=== PATIENT | male | born 1935 | race Caucasian/White ===

== ENCOUNTER 2017-03-23 05:39 | Day surgery (SDC) | payer MEDICARE, BC ==
[2017-03-12 12:44] VITALS: BMI 30.7
--- NOTE | 2017-03-13 05:15 | HP ---
DATE OF ADMISSION: 03/23/2017 HISTORY OF PRESENT ILLNESS: Mr. Ancelmo Ojeda is an 81-year-old male patient followed Dr. Jang wi th an umbilical hernia that is bothersome to him. He has gained weight recently. He has a diastasi s recti. Plan is to repair his hernia using mesh as it is bothersome. He understands the risks and benefits and consents. He consents to use of mesh. He understands risks of infection, bleeding, r eoperation, recurrence of hernia and consents. MEDICATIONS: Advil as needed, Aleve as needed, Tylenol as needed, folic acid daily, glucosamine 3 t ablets a day, multivitamins daily, Flomax 0.4 mg daily, finasteride 5 mg a day. PAST MEDICAL HISTORY: Rheumatoid arthritis, BPH, umbilical hernia. PAST SURGICAL HISTORY: Vasectomy in 1981, bilateral inguinal hernia repair in 2003, rotator cuff re pair in 2003, hemorrhoidectomy in 1987, colonoscopy in 2001, left shoulder squamous cell carcinoma e xcision that I performed in 2012, synovectomy left knee in 2007. ALLERGIES: None. SOCIAL HISTORY: Tobacco none. Alcohol none. REVIEW OF SYSTEMS: Ten-point noncontributory. PHYSICAL EXAMINATION: VITAL SIGNS: 234 pounds, 5 foot 10 inches, 136/72, 79, 97.3 degrees. HEAD, EARS, EYES, NOSE AND THROAT: Unremarkable. LUNGS: Clear to auscultation. CARDIAC: Regular rate and rhythm without murmur or gallop. ABDOMEN: Soft, obese. Umbilical hernia present, diastasis recti present. ASSESSMENT AND PLAN: 1. Umbilical hernia. Plan mesh repair. Risks of infection, bleeding, reoperation, recurrence of h ernia have discussed and questions answered. 2. Diastasis recti, no intervention necessary. 3. Hypertension. 4. Rheumatoid arthritis.
[2017-03-23] MEDS ORDERED: Ketorolac Tromethamine 30 MG/ML VIAL ONE (06:15)
[2017-03-23] MEDS ORDERED: Fentanyl 100 MCG/2 ML VIAL ONE (06:50)
[2017-03-23] MEDS ORDERED: Bupivacaine HCl 0.5%/Epinephrine 1:200,000/PF 30 ml Vial ONE (06:59)
[2017-03-23] MEDS ORDERED: Glycopyrrolate 0.2 MG/ML 5 ML SYRINGE ONE (07:37)
[2017-03-23] MEDS ORDERED: Dexamethasone 20 MG/5 ML VIAL ONE (07:37)
[2017-03-23] MEDS ORDERED: Lidocaine 1% PF 5 ML VIAL ONE (07:37)
[2017-03-23] MEDS ORDERED: Ondansetron HCl/PF 4 MG/2 ML Vial ONE (07:37)
[2017-03-23] MEDS ORDERED: Propofol 200 MG/20 ML VIAL ONE (07:37)
--- NOTE | 2017-03-23 09:23 | OP ---
DATE OF PROCEDURE: 03/23/2017 PREOPERATIVE DIAGNOSES: Umbilical hernia, symptomatic, diastasis recti no treatment. POSTOPERATIVE DIAGNOSIS: Umbilical hernia, symptomatic, diastasis recti no treatment. PROCEDURE: Umbilical hernia repair 6.4 cm PVP mesh. SURGEON: Dr. Emeterio Santacruz ANESTHESIA: General. Local 0.5% Marcaine with epinephrine, 30 mL, mixed with 2% Xylocaine, 10 mL. PROCEDURE IN DETAIL: The patient was taken to the operating room where under general anesthesia, ab domen was clipped of hair, prepared with chloraprep, draped in routine fashion. Local anesthetic in filtrated into skin and subcutaneous tissue about the operative site. Infraumbilical incision made and carried down through the skin and subcutaneous tissue to the fascial defect resecting the umbili william hernia and incarcerated omentum. The remainder of omentum dropped back into the abdominal cavit y. The underside prefascial area was dissected free digitally and a 6.4 cm PVP mesh placed in the a bdominal cavity opened and fascia approximated oskmo-cutt-awth type fashion with interrupted sutures of 0 PDS pop-offs incorporating mesh into the approximation. Once this was completed, subcutaneous tissues approximated with 3-0 Monocryl, skin with subdermal 4-0 Monocryl and DermaGlue applied. Th e patient tolerated the procedure well.
== END 2017-03-23 10:22 | disposition home or self-care (01) ==
LOC: SDC 05:39
PROVIDERS: ATTEND Specialist
PROC: 0WUF0JZ Supplement Abdominal Wall with Synthetic Substitute, Open Approach (ICD-10-PCS; principal; 2017-03-23)
DX: K42.0 Umbilical hernia with obstruction, without gangrene (principal); M62.08 Separation of muscle (nontraumatic), other site; M06.9 Rheumatoid arthritis, unspecified; I10 Essential (primary) hypertension; Z79.899 Other long term (current) drug therapy; Z98.52 Vasectomy status; Z98.42 Cataract extraction status, left eye; Z98.41 Cataract extraction status, right eye; Z96.1 Presence of intraocular lens; Z98.890 Other specified postprocedural states
CPT/HCPCS: J0131; J0670; J1100; J1885; J2001; J2405; J2704; J3010

== ENCOUNTER 2019-03-17 08:17 | Outpatient (CLI) | payer MEDICARE, BC ==
--- NOTE | 2019-03-17 13:38 | RAD ---
XR Chest Pa Lat STANDARD HISTORY: Preoperative evaluation COMPARISON: 04/07/2013 FINDINGS: The heart size is normal. The aorta is tortuous. Mild chronic changes again seen. The lungs are well expanded without focal areas of consolidation, pneumothorax or pleural effusions. There are postop changes of right rotator cuff repair. IMPRESSION: No radiographic evidence of acute cardiopulmonary process.
[2019-03-17 13:43] LABS: #Eosinphils 0.2 thou/uL (0.0-0.7); #Lymphocytes 2.2 thou/uL (1.20-3.40); #Monocytes 0.7 thou/uL (0.11-0.59); #Neutrophils 6.5 thou/uL (1.40-6.50); %Basophils 0.3 % (0.0-1.0); %Lymphocytes 22.7 % (21.0-51.0); %Monocytes 7.7 % (0.0-10.0); %Neutrophils 67.3 % (42.0-75.0); Hemoglobin 16.6 g/dL (14.0-18.0); Mean Corpuscular HGB CONC 35.2 g/dL (32.0-36.0); Mean Corpuscular Volume 90.7 fL (78.0-98.0); Mean Platelet Volume 7.3 fL (7.4-10.4); Platelet Count 198 thou/uL (130-400); RBC Distribution Width 12.5 % (11.5-14.5); White Blood Cell (WBC) Count 9.6 thou/uL (4.8-10.8)
[2019-03-17 13:48] LABS: Bacteria/HPF None Seen HPF (None Seen); Bilirubin Negative (Negative); Blood, Urine Negative (Negative); Clarity Clear (Clear); Glucose, Urine (Dipstick) Normal (Negative); Leukocyte Negative Leu/uL (Negative); Nitrite Negative (Negative); Protein, Urine (Dipstick) Negative (Neg-Trace); RBC/HPF 0-3 HPF (0-3); Squamous Epithelial None Seen HPF (0-3); Urobilinogen Normal mg/dL (Less than 2); WBC/HPF 0-3 HPF (0-3)
[2019-03-17 13:49] LABS: Prothrombin Time 13.2 SEC (12.0-14.7)
[2019-03-17 14:07] LABS: Anion Gap 10 mmol/L (10-20); BUN (Urea Nitrogen) 14 mg/dL (8.4-25.7); Calc. Creatinine Clearance 0 mL/min (70-130); Calcium 9.8 mg/dL (7.8-10.44); Carbon Dioxide 26 mmol/L (23-31); Chloride 104 mmol/L (98-107); Estimated GFR-MDRD 71; Glucose 89 mg/dL (83-110); Potassium 4.2 mmol/L (3.5-5.1); Sodium 136 mmol/L (136-145)
== END 2019-03-17 08:18 | disposition home or self-care (01) ==
LOC: LABBT 08:17
PROVIDERS: ATTEND Orthopaedic Surgery
DX: Z01.818 Encounter for other preprocedural examination (principal); M17.11 Unilateral primary osteoarthritis, right knee
CPT/HCPCS: 71046; 80048; 81001; 85025; 85610; 87081; 93005; 93010

== ENCOUNTER 2019-03-28 05:33 | Day surgery (SDC) | payer MEDICARE, BC ==
[2019-03-17 13:00] VITALS: BMI 31.7
[2019-03-28] MEDS ORDERED: Tranexamic Acid 1,000 MG/10 ML VIAL ONE ×2 (05:58→09:11)
[2019-03-28] MEDS ORDERED: Sodium Chloride 0.9% 100 ML ONE (05:58)
[2019-03-28] MEDS ORDERED: Vancomycin HCl 1.5 GM in Sodium Chloride 0.9% 250 ML 300 ML IVPB SCH ×2 (06:15→18:00)
[2019-03-28] MEDS ORDERED: Fentanyl 100 MCG/2 ML VIAL ONE ×3 (06:25→09:44)
[2019-03-28] MEDS ORDERED: Midazolam HCl 2 mg/2 ml Vial ONE (06:25)
[2019-03-28] MEDS ORDERED: Bupivacaine PF 0.5% 30 ML VIAL ONE (06:26)
[2019-03-28] MEDS ORDERED: Zolpidem Tartrate 5 MG TAB PO PRN ×2 (07:07→07:10)
[2019-03-28] MEDS ORDERED: Promethazine HCl 25 MG/ML VIAL IM PRN ×2 (07:07→07:10)
[2019-03-28] MEDS ORDERED: Ondansetron PF 4 MG/2 ML Vial IVP PRN ×2 (07:07→07:10)
[2019-03-28] MEDS ORDERED: traMADol HCl 50 MG TAB PO PRN ×2 (07:07)
[2019-03-28] MEDS ORDERED: HYDROcodone/Acetaminophen 10/325 mg Tablet PO PRN ×3 (07:07→07:10)
[2019-03-28] MEDS ORDERED: Fentanyl 100 MCG/2 ML VIAL SLOW IVP PRN ×2 (07:08→07:10)
[2019-03-28] MEDS ORDERED: Acetaminophen 325 MG TAB PO PRN (07:10)
[2019-03-28] MEDS ORDERED: diphenhydrAMINE 25 MG CAP PO PRN (07:10)
[2019-03-28] MEDS ORDERED: Tranexamic Acid 1,000 MG in Sodium Chloride 0.9% 100 ML IVPB SCH (07:15)
--- NOTE | 2019-03-28 11:26 | OP ---
DATE OF PROCEDURE: 03/28/2019 PAPER CONE GRADER: Irvin Parikh PA-C PREOPERATIVE DIAGNOSIS: Right knee osteoarthrosis. POSTOPERATIVE DIAGNOSIS: Right knee osteoarthrosis. PROCEDURE PERFORMED: Right total knee replacement using Chrissie pinless navigation. ESTIMATED BLOOD LOSS: Minimal. COMPLICATIONS: None. ANESTHESIA: He did have a general anesthetic. He also had a preoperative block. DISPOSITION: He did go to recovery room in stable condition. IMPLANTS: Our implants to the right knee is a Gilman Triathlon total knee system. The femur was a size 4 cruciate-retaining femur. We used a size 5 primary tibial baseplate. We used a 5 x 9 CS X3 tibial bearing, and an asymmetric 29 x 9 X3 patella. INDICATIONS: This is an 83-year-old male, who has failed nonoperative treatment and at this time wished to have his knee replaced. PROCEDURE IN DETAIL: After all appropriate consent forms were explained and signed, the patient was taken back to the operating room and at this time was given general anesthetic. Once the level of anesthesia was appropriate, a well-padded tourniquet was placed on the right leg, and the leg was then prepped and draped in standard surgical fashion. The limb was exsanguinated and tourniquet taken up to 300 mmHg. Midline incision was made with a 10 blade down through the skin and subcutaneous tissue. Bovie electrocautery was used to coagulate any brisk venous bleeding. A new blade was used to make a medial parapatellar arthrotomy. Small subperiosteal release was performed medially and excess fat pad was removed. The knee was flexed up to gain access to the femur. The femur was navigated and distal femoral resection was made. Epicondylar access was used to align our sizing jig and this was pinned in place. We sized our femur to be a size 4 cruciate-retaining femur. 4:1 cutting block was applied and pinned. Anterior and posterior chamfer cuts were then made. We navigated out our proximal tibia and made our proximal tibial resection. Spreaders were used to remove any posterior osteophytes off the back of the femur as well as remaining meniscal tissue. A long alignment leanne was then used to achieve correct rotation of our tibial baseplate and we used a size 5 primary tibial baseplate was chosen. This was pinned in place. We trialed the polyethylene and we used a 5 x 9 CS X3 tibial bearing polyethylene gave us full extension and good stability throughout range of motion. Two towel clips and a saw were used to cut our patella. Three lug nuts were drilled and an asymmetric 29 x 9 X3 patella was trialed which sat nicely in the trochlear groove. We then drilled our femur and punched our tibia. All components were removed. The knee was thoroughly irrigated and dried. Cement was mixed into the cement gun on the back table. Components were then placed. The knee was held out in full extension until the cement had dried. All excess bone cement was removed. Multiple #2 Vicryl stitches as well as a Quill were used to close our extensor mechanism. 0 Quill followed by a running Monoderm was then used to close the skin. Surgicel glue was then used on the skin. Once this had dried, soft tissue dressing was applied to the limb, tourniquet was let down, and the toes pinked up nicely. The patient was then awakened and taken to the recovery room in stable condition. All counts were correct at the end of the case. The patient did receive preoperative IV antibiotics. The patient was injected with Marcaine for postoperative pain relief. Job ID: [id number]
[2019-03-28] MEDS: Aspirin 81 mg Enteric Coated Tablet PO SCH ×2 (11:56→20:08)
[2019-03-28] MEDS: Finasteride 5 MG TAB PO SCH (11:56)
[2019-03-28] MEDS: Ferrous Gluconate 324 MG TAB PO SCH ×2 (11:56→20:08)
[2019-03-28] MEDS: Multivitamin W/ Minerals 1 TAB PO SCH (11:57)
[2019-03-28] MEDS: Senokot S 8.6-50 MG TAB PO SCH ×2 (11:57→20:08)
[2019-03-28] MEDS ORDERED: Ketorolac Tromethamine 30 MG/ML VIAL IVP SCH (12:00)
[2019-03-28] MEDS: Sodium Chloride 0.9% 1,000 ML IV SCH ×2 (12:31→14:33)
[2019-03-28] MEDS ORDERED: Bupivacaine HCl 0.5%/Epinephrine 1:200,000/PF 30 ml Vial ONE (13:31)
[2019-03-28] MEDS ORDERED: Ropivacaine 0.5% HCl/PF (150 MG/30 ML VIAL) ONE (13:31)
[2019-03-28] MEDS ORDERED: Ropivacaine 0.2% HCl/PF (40 MG/20 ML VIAL) ONE (13:31)
[2019-03-28] MEDS: Ketorolac Tromethamine 30 MG/ML VIAL IVP SCH ×2 (13:48→21:39)
[2019-03-28] MEDS: CEFAZOLIN 2 GM in Premix Bag 1 BAG IVPB SCH ×2 (14:03→21:39)
[2019-03-28] MEDS ORDERED: Lidocaine 1% PF 5 ML VIAL ONE (15:04)
[2019-03-28] MEDS ORDERED: Ondansetron PF 4 MG/2 ML Vial ONE (15:04)
[2019-03-28] MEDS ORDERED: Ketorolac Tromethamine 30 MG/ML VIAL ONE (15:04)
[2019-03-28] MEDS ORDERED: PROPOFOL 200 MG/20 ML VIAL ONE (15:04)
[2019-03-28] MEDS: Tamsulosin HCl 0.4 MG CAP PO SCH (20:08)
[2019-03-29] MEDS: Sodium Chloride 0.9% 1,000 ML IV SCH ×2 (03:09→08:13)
[2019-03-29 04:42] LABS: Hemoglobin 13.6 g/dL (14.0-18.0); Mean Corpuscular HGB CONC 35.6 g/dL (32.0-36.0); Mean Corpuscular Hemoglobin 32.7 pg (27.0-31.0); Mean Corpuscular Volume 91.8 fL (78.0-98.0); Platelet Count 163 thou/uL (130-400); RBC Distribution Width 12.5 % (11.5-14.5); Red Blood Cell (RBC) Count 4.15 mill/uL (4.70-6.10); White Blood Cell (WBC) Count 13.8 thou/uL (4.8-10.8)
[2019-03-29] MEDS: Ketorolac Tromethamine 30 MG/ML VIAL IVP SCH ×3 (05:23→23:44)
[2019-03-29] MEDS: Senokot S 8.6-50 MG TAB PO SCH ×2 (08:05→23:41)
[2019-03-29] MEDS: Multivitamin W/ Minerals 1 TAB PO SCH (08:06)
[2019-03-29] MEDS: Ferrous Gluconate 324 MG TAB PO SCH ×2 (08:06→23:41)
[2019-03-29] MEDS: Finasteride 5 MG TAB PO SCH (08:07)
[2019-03-29] MEDS: Aspirin 81 mg Enteric Coated Tablet PO SCH ×2 (08:07→23:41)
[2019-03-29] MEDS: traMADol HCl 50 MG TAB PO PRN ×2 (08:10→18:30)
[2019-03-29] MEDS: Ropivacaine HCl/PF 250 ML in Premix Bag 1 BAG NERVE BLCK SCH (10:24)
--- NOTE | 2019-03-29 10:58 | PRG ---
DATE OF SERVICE: 03/29/2019 SUBJECTIVE: Ancelmo is an 83-year-old male, who is postop day 1 from a right total knee arthroplasty. He has no complaints of pain. He is quite comfortable at this point. His block is working well. OBJECTIVE: VITAL SIGNS: Temperature 98.5, pulse 73, respiratory rate 18 and unlabored, and blood pressure 102/54. GENERAL: He is alert and oriented to person, place, time, and situation. Responsive and appropriate with examiner. Grossly nonfocal. EXTREMITIES: His incision is clean without any erythema. No strike through and he is neurovascularly intact in the right lower extremity. LABORATORY DATA: Hemoglobin and hematocrit 13.6 and 38.1. IMPRESSION: An 83-year-old male postop day 1, right total knee arthroplasty, doing very well. PLAN: Continue current care. Probable discharge home tomorrow. Job ID: [id number]
--- NOTE | 2019-03-29 13:58 | PDOC.HOSPP ---
- Subjective Encounter Date: 03/28/19 Encounter Time: 14:00 Subjective: pt up in bed no complains - Objective Vital Signs & Weight: Vital Signs (12 hours) Temp Pulse Resp BP BP Pulse Ox 03/29/19 12:35 97.9 F 88 18 134/68 95 03/29/19 07:33 98.5 F 73 18 102/54 L 94 L 03/29/19 04:31 97.9 F 79 20 102/58 L 92 L Weight Admit Weight 215 lb Weight 215 lb I&O: 03/28/19 03/29/19 03/30/19 06:59 06:59 06:59 Intake Total 2140 Output Total 350 Balance 1790 Result Diagrams: 03/29/19 03:57 Hospitalist ROS - Review of Systems Respiratory: denies: cough, dry, shortness of breath, hemoptysis, SOB with excertion, pleuritic pain, sputum, wheezing, other Cardiovascular: denies: chest pain, palpitations, orthopnea, paroxysmal noc. dyspnea, edema, light headedness, other Gastrointestinal: denies: nausea, vomiting, abdominal pain, diarrhea, constipation, melena, hematochezia, other - Medication Medications: Active Medications Generic Name Dose Route Start Last Admin Trade Name Freq PRN Reason Stop Dose Admin Hydrocodone Bitart/Acetaminophen 2 tab 03/28/19 07:10 03/28/19 20:45 [place] 10/325 PO 2 tab Q4H PRN Administration Severe Pain (7-10) Aspirin 81 mg 03/28/19 09:00 03/29/19 08:07 Ecotrin PO 81 mg BID JERED Administration Cholecalciferol 1,000 units 03/28/19 09:00 03/29/19 08:07 Vitamin D3 PO 1,000 units DAILY JERED Administration Ferrous Gluconate 324 mg 03/28/19 09:00 03/29/19 08:06 Fergon PO 324 mg BID JERED Administration Finasteride 5 mg 03/28/19 09:00 03/29/19 08:07 Proscar PO 5 mg QAM JERED Administration Ropivacaine 250 ml/ Device 250 mls @ 10 mls/hr 03/28/19 07:07 03/29/19 10:24 NERVE BLCK 250 mls INF JERED Administration Sodium Chloride 1,000 mls @ 100 mls/hr 03/28/19 07:15 03/29/19 08:13 Normal Saline 0.9% IV Not Given .Q10H JERED Iron/Minerals/Multivitamins 1 tab 03/28/19 09:00 03/29/19 08:06 Theragran M PO 1 tab DAILY JERED Administration Ketorolac Tromethamine 15 mg 03/28/19 14:00 03/29/19 13:42 Toradol IVP 03/30/19 14:01 15 mg Q8HR JERED Administration Senna/Docusate Sodium 2 tab 03/28/19 09:00 03/29/19 08:05 Senokot S PO 2 tab BID JERED Administration Sodium Chloride 10 ml 03/28/19 07:10 03/29/19 08:08 Flush - Normal Saline IVF 10 ml PRN PRN Administration Saline Flush Tamsulosin HCl 0.4 mg 03/28/19 21:00 03/28/19 20:08 Flomax PO 0.4 mg QPM JERED Administration Tramadol HCl 100 mg 03/28/19 07:10 03/29/19 08:10 Ultram PO 100 mg Q6H PRN Administration Moderate Pain (4-6) - Exam Heart: negative: RRR, no murmur, no gallops, no rubs, normal peripheral pulses, irregular, diminshed peripheral pulses, murmur present, II/IV, III/IV Respiratory: negative: CTAB, no wheezes, no rales, no ronchi, normal chest expansion, no tachypnea, normal percussion, rales, rhonchi, tachypneic, wheezes Gastrointestinal: negative: soft, non-tender, non-distended, normal bowel sounds , no palpable masses, no hepatomegaly, no splenomegaly, no bruit, no guarding, no rigidity, tender to palpation, distended, diminished bowl sounds, voluntary guarding Hosp A/P (1) HTN (hypertension) Code(s): I10 - ESSENTIAL (PRIMARY) HYPERTENSION Status: Acute (2) BPH (benign prostatic hyperplasia) Code(s): N40.0 - BENIGN PROSTATIC HYPERPLASIA WITHOUT LOWER URINRY TRACT SYMP Status: Acute (3) Smoking hx Code(s): Z87.891 - PERSONAL HISTORY OF NICOTINE DEPENDENCE Status: Acute - Plan will continue current meds, pt is on oxygen. will start to wean off. He has a hx of smoking for about 30y a pack a day. Currently does not smoke. dvt ppx per ortho.
--- NOTE | 2019-03-29 14:01 | PDOC.HOSPP ---
- Subjective Encounter Date: 03/29/19 Encounter Time: 13:59 Subjective: pt up in bed no complains but was wheezing while ambulating. - Objective Vital Signs & Weight: Vital Signs (12 hours) Temp Pulse Resp BP BP Pulse Ox 03/29/19 12:35 97.9 F 88 18 134/68 95 03/29/19 07:33 98.5 F 73 18 102/54 L 94 L 03/29/19 04:31 97.9 F 79 20 102/58 L 92 L Weight Admit Weight 215 lb Weight 215 lb I&O: 03/28/19 03/29/19 03/30/19 06:59 06:59 06:59 Intake Total 2140 Output Total 350 Balance 1790 Result Diagrams: 03/29/19 03:57 Hospitalist ROS - Review of Systems Respiratory: denies: cough, dry, shortness of breath, hemoptysis, SOB with excertion, pleuritic pain, sputum, wheezing, other Cardiovascular: denies: chest pain, palpitations, orthopnea, paroxysmal noc. dyspnea, edema, light headedness, other Gastrointestinal: denies: nausea, vomiting, abdominal pain, diarrhea, constipation, melena, hematochezia, other - Medication Medications: Active Medications Generic Name Dose Route Start Last Admin Trade Name Freq PRN Reason Stop Dose Admin Hydrocodone Bitart/Acetaminophen 2 tab 03/28/19 07:10 03/28/19 20:45 [place] 10/325 PO 2 tab Q4H PRN Administration Severe Pain (7-10) Aspirin 81 mg 03/28/19 09:00 03/29/19 08:07 Ecotrin PO 81 mg BID JERED Administration Cholecalciferol 1,000 units 03/28/19 09:00 03/29/19 08:07 Vitamin D3 PO 1,000 units DAILY JERED Administration Ferrous Gluconate 324 mg 03/28/19 09:00 03/29/19 08:06 Fergon PO 324 mg BID JERED Administration Finasteride 5 mg 03/28/19 09:00 03/29/19 08:07 Proscar PO 5 mg QAM JERED Administration Ropivacaine 250 ml/ Device 250 mls @ 10 mls/hr 03/28/19 07:07 03/29/19 10:24 NERVE BLCK 250 mls INF JERED Administration Sodium Chloride 1,000 mls @ 100 mls/hr 03/28/19 07:15 03/29/19 08:13 Normal Saline 0.9% IV Not Given .Q10H JERED Iron/Minerals/Multivitamins 1 tab 03/28/19 09:00 03/29/19 08:06 Theragran M PO 1 tab DAILY JERED Administration Ketorolac Tromethamine 15 mg 03/28/19 14:00 03/29/19 13:42 Toradol IVP 03/30/19 14:01 15 mg Q8HR JERED Administration Senna/Docusate Sodium 2 tab 03/28/19 09:00 03/29/19 08:05 Senokot S PO 2 tab BID JERED Administration Sodium Chloride 10 ml 03/28/19 07:10 03/29/19 08:08 Flush - Normal Saline IVF 10 ml PRN PRN Administration Saline Flush Tamsulosin HCl 0.4 mg 03/28/19 21:00 03/28/19 20:08 Flomax PO 0.4 mg QPM JERED Administration Tramadol HCl 100 mg 03/28/19 07:10 03/29/19 08:10 Ultram PO 100 mg Q6H PRN Administration Moderate Pain (4-6) - Exam Neck: negative: supple, symmetric, no JVD, no thyromegaly, no lymphadenopathy, no carotid bruit, JVD Heart: negative: RRR, no murmur, no gallops, no rubs, normal peripheral pulses, irregular, diminshed peripheral pulses, murmur present, II/IV, III/IV Respiratory: negative: CTAB, no wheezes, no rales, no ronchi, normal chest expansion, no tachypnea, normal percussion, rales, rhonchi, tachypneic, wheezes Gastrointestinal: negative: soft, non-tender, non-distended, normal bowel sounds , no palpable masses, no hepatomegaly, no splenomegaly, no bruit, no guarding, no rigidity, tender to palpation, distended, diminished bowl sounds, voluntary guarding Extremities: negative: no cyanosis, no clubbing, no edema, 1+ LE edema, 2+ LE edema, clubbing Hosp A/P (1) HTN (hypertension) Code(s): I10 - ESSENTIAL (PRIMARY) HYPERTENSION Status: Acute (2) BPH (benign prostatic hyperplasia) Code(s): N40.0 - BENIGN PROSTATIC HYPERPLASIA WITHOUT LOWER URINRY TRACT SYMP Status: Acute (3) Smoking hx Code(s): Z87.891 - PERSONAL HISTORY OF NICOTINE DEPENDENCE Status: Acute - Plan will continue current meds, pt is on oxygen. will start to wean off. He has a hx of smoking for about 30y a pack a day. Currently does not smoke. dvt ppx per ortho. 03/29 will start him on some duoneb for now. keep sat >90% if he continues to wheeze may consider steroids given his hx of smoking he most likely has undiagnosed copd.
[2019-03-29] MEDS ORDERED: Ondansetron PF 4 MG/2 ML Vial ONE (15:39)
[2019-03-29] MEDS ORDERED: PROPOFOL 200 MG/20 ML VIAL ONE (15:39)
[2019-03-29] MEDS ORDERED: Succinylcholine Chloride 20 MG/ML 10 ml SYRINGE FS ONE (15:39)
[2019-03-29] MEDS ORDERED: Glycopyrrolate 0.2 MG/ML 5 ML SYRINGE ONE (15:39)
[2019-03-29] MEDS ORDERED: Dexamethasone 20 MG/5 ML VIAL ONE (15:39)
[2019-03-29] MEDS ORDERED: Rocuronium Bromide 10 MG/ML (10ML VIAL) ONE (15:39)
[2019-03-29] MEDS ORDERED: Calcium Chloride 1 GM/10 ML Abboject SYRINGE ONE (15:39)
[2019-03-29] MEDS ORDERED: Lidocaine 1% PF 5 ML VIAL ONE (15:39)
[2019-03-29] MEDS ORDERED: PHENYLEPHRINE-NS 100 MCG/ML 10 ML SYRINGE ONE (15:39)
[2019-03-29] MEDS ORDERED: Furosemide 40 MG/4 ML VIAL SLOW IVP SCH ×2 (17:30→17:32)
--- NOTE | 2019-03-29 20:00 | RAD ---
TWO VIEWS RIGHT KNEE: 03/29/19 PROVIDED CLINICAL HISTORY: Status post fall. FINDINGS: No comparisons. Postoperative changes right total knee arthroplasty are demonstrated without evidence for hardware lo osening or migration. There is no evidence for fracture or other acute osseous abnormality. Soft tiss ue gas is noted. Vascular calcifications are seen. IMPRESSION: 1. No evidence for an acute osseous abnormality. 2. Nonspecific soft tissue gas. Correlate clinically with concerns for infection. POS: SIDRA
[2019-03-29] MEDS ORDERED: Fentanyl 100 MCG/2 ML VIAL ONE (20:01)
[2019-03-29] MEDS ORDERED: Vancomycin HCl 1.5 GM in Sodium Chloride 0.9% 250 ML 300 ML IVPB SCH (21:15)
[2019-03-29] MEDS ORDERED: Ondansetron HCl/PF 4 MG/2 ML Vial IVP PRN (21:22)
[2019-03-29] MEDS ORDERED: Promethazine HCl 25 MG/ML VIAL IM PRN ×2 (21:22→22:11)
[2019-03-29] MEDS ORDERED: Promethazine HCl 25 MG/ML VIAL SLOW IVP PRN (21:22)
[2019-03-29] MEDS ORDERED: Zolpidem Tartrate 5 MG TAB PO PRN (22:11)
[2019-03-29] MEDS ORDERED: Acetaminophen 325 MG TAB PO PRN (22:11)
[2019-03-29] MEDS ORDERED: Ondansetron PF 4 MG/2 ML Vial IVP PRN (22:11)
[2019-03-29] MEDS ORDERED: diphenhydrAMINE 25 MG CAP PO PRN (22:11)
[2019-03-29] MEDS: Tamsulosin HCl 0.4 MG CAP PO SCH (23:44)
[2019-03-30] MEDS: Sodium Chloride 0.9% 1,000 ML IV SCH ×3 (01:16→23:36)
--- NOTE | 2019-03-30 01:49 | HP ---
HISTORY OF PRESENT ILLNESS: This is an 83-year-old male, who had his right knee replaced yesterday, who apparently got up on his own without any assistance and fell. I was immediately notified by the nursing staff for this and they notified me that his dressing was saturated with blood and at this time, I came up to the hospital to evaluate the patient. Upon his evaluation on his physical exam, he is a well-developed male. He is not in acute distress. He is alert, however, he does not appear to be oriented. The patient said multiple times he was at home. He wanted me to call 911 and even though he is very talkative and appropriate, he really just does not know where he is at this time. At this time, his vital signs were stable. He is afebrile. The exam of his right lower extremity shows dressing to be saturated. I did take this down and did take off his sterile dressing with some sterile gloves to prove that he did have an opening approximately an inch in length at the top portion of the wound with deep colored blood that more than likely came from the joint. This was not probed obviously. At this time, an Devon wrap was placed over top as I laid back down in sterile dressing. ASSESSMENT: Open knee joint, status post total knee. Plan at this time recommendation for the patient is to go to the operating room for a formal I and D of his right knee followed by primary closure. Again, we will start IV antibiotics at this time, and I have notified the patient that this is significant complicating factor and can lead to postoperative infection. Again, this man unfortunately at this time, even though he states that he understands everything is obviously not in his normal mental status. Job ID: [id number] [facility]
--- NOTE | 2019-03-30 03:55 | OP ---
DATE OF PROCEDURE: 03/29/2019 PREOPERATIVE DIAGNOSIS: Right knee surgical wound dehiscence, status post right total knee replacement. POSTOPERATIVE DIAGNOSIS: Right knee surgical wound dehiscence, status post right total knee replacement. PROCEDURE PERFORMED: Right knee I and D followed by primary closure of right knee wound. LATHE SANDER: None. BLOOD LOSS: Approximately 50 mL. COMPLICATIONS: None. ANESTHESIA: The patient had a general anesthetic. There were no new implants. DISPOSITION: He did go to recovery room in stable condition. INDICATIONS: This is an 83-year-old male, who had his knee replaced yesterday and unfortunately at around 6 o'clock today, the patient was getting up out of bed on his own accord without asking for any help and fell. He was found on the floor by one of the nurses who notified me of his fall and told me that his dressing was saturated with blood. At this time, I came into the hospital to evaluate him, found that his knee wound had dehisced and he was taken back emergently for formal I and D. DESCRIPTION OF PROCEDURE: After all appropriate consent forms were explained and signed, Mr. Ojeda taken back to the operating room and at this time was given general anesthetic. Once the level of anesthesia was appropriate, tourniquet was placed in the right thigh and the right lower extremity was prepped and draped in surgical fashion with a Betadine scrub secondary to the open wound. At this time, the limb was elevated, not exsanguinated, and tourniquet was taken up to 300 mmHg. Incision was opened up with blade and hemostat to expose underlying tissues. Copious amount of blood clot and dark blood was evacuated at this time. We then found that his deep tissue closure of his knee capsule had opened up proximally the middle 40% to 50% of the wound. The most inferior aspect stayed closed and the most superior aspect was closed. We went reached into the wound again, removed clot. We then took the pulse lavage around 3 L through this area. There was no significant damage done to the tissues other than this broken sutures. As many Vicryl and Stratafix sutures as could be visualized were removed at this time. We then dried the wound. We then placed multiple #2 Vicryl sutures in our deep tissues followed by a running #2 Stratafix. We then used 0 and 3-0 Stratafix to close the more superior layers. Secondary to not using glue for skin closure, we then placed multiple interrupted nylon sutures through the top layer of the skin for a final closure. Bulky sterile dressing was applied as well as a knee immobilizer. The tourniquet was let down. Toes pinked up nicely. The patient was awakened. He was taken to recovery room in stable condition. All counts were correct at the end of the case and he did receive preoperative IV antibiotics. Job ID: [id number]
[2019-03-30] MEDS: Ketorolac Tromethamine 30 MG/ML VIAL IVP SCH ×2 (06:07→15:24)
[2019-03-30 06:24] LABS: Hemoglobin 11.2 g/dL (14.0-18.0); Mean Corpuscular HGB CONC 35.7 g/dL (32.0-36.0); Mean Corpuscular Hemoglobin 32.4 pg (27.0-31.0); Mean Corpuscular Volume 90.9 fL (78.0-98.0); Mean Platelet Volume 7.1 fL (7.4-10.4); Platelet Count 149 thou/uL (130-400); RBC Distribution Width 12.5 % (11.5-14.5); Red Blood Cell (RBC) Count 3.45 mill/uL (4.70-6.10); White Blood Cell (WBC) Count 13.6 thou/uL (4.8-10.8)
[2019-03-30] MEDS ORDERED: CEFAZOLIN 2 GM in Premix Bag 1 BAG IVPB SCH (08:00)
[2019-03-30] MEDS ORDERED: Vancomycin HCl 1.5 GM in Sodium Chloride 0.9% 250 ML 300 ML IVPB SCH (08:00)
[2019-03-30] MEDS: Multivitamin W/ Minerals 1 TAB PO SCH (08:50)
[2019-03-30] MEDS: Aspirin 81 mg Enteric Coated Tablet PO SCH ×2 (08:51→20:34)
[2019-03-30] MEDS: Ferrous Gluconate 324 MG TAB PO SCH ×2 (08:51→15:29)
[2019-03-30] MEDS: Finasteride 5 MG TAB PO SCH (08:51)
[2019-03-30] MEDS: CEFAZOLIN 2 GM in Premix Bag 1 BAG IVPB SCH ×2 (08:52→15:27)
[2019-03-30] MEDS: Senokot S 8.6-50 MG TAB PO SCH ×2 (08:52→20:34)
[2019-03-30] MEDS ORDERED: Furosemide 40 MG/4 ML VIAL SLOW IVP SCH (09:00)
[2019-03-30] MEDS ORDERED: Budesonide 0.25 MG/2 ML NEB INH SCH (12:15)
[2019-03-30] MEDS: Ropivacaine HCl/PF 250 ML in Premix Bag 1 BAG NERVE BLCK SCH (12:20)
[2019-03-30] MEDS: Tamsulosin HCl 0.4 MG CAP PO SCH (20:33)
[2019-03-30] MEDS: HYDROcodone/Acetaminophen 10/325 mg Tablet PO PRN (20:34)
[2019-03-30] MEDS: Budesonide 0.25 MG/2 ML NEB INH SCH (23:52)
[2019-03-31] MEDS: Ropivacaine HCl/PF 250 ML in Premix Bag 1 BAG NERVE BLCK SCH (01:37)
[2019-03-31] MEDS: Sodium Chloride 0.9% 1,000 ML IV SCH (04:14)
[2019-03-31 05:11] LABS: Mean Corpuscular HGB CONC 36.1 g/dL (32.0-36.0); Mean Corpuscular Hemoglobin 32.3 pg (27.0-31.0); Mean Corpuscular Volume 89.7 fL (78.0-98.0); Mean Platelet Volume 6.9 fL (7.4-10.4); Platelet Count 155 thou/uL (130-400); RBC Distribution Width 12.3 % (11.5-14.5); Red Blood Cell (RBC) Count 3.39 mill/uL (4.70-6.10); White Blood Cell (WBC) Count 10.8 thou/uL (4.8-10.8)
[2019-03-31] MEDS: Budesonide 0.25 MG/2 ML NEB INH SCH (07:06)
[2019-03-31] MEDS: Multivitamin W/ Minerals 1 TAB PO SCH (07:40)
[2019-03-31] MEDS: Finasteride 5 MG TAB PO SCH (07:40)
[2019-03-31] MEDS: Senokot S 8.6-50 MG TAB PO SCH (07:40)
[2019-03-31] MEDS: Aspirin 81 mg Enteric Coated Tablet PO SCH (07:40)
[2019-03-31] MEDS: Ferrous Gluconate 324 MG TAB PO SCH (07:41)
[2019-03-31] MEDS: HYDROcodone/Acetaminophen 10/325 mg Tablet PO PRN (14:09)
[2019-03-31 15:23] VITALS: BP 112/63; TEMP 98.2
== END 2019-03-31 17:33 ==
LOC: SDC 05:33 → SJJU 07:10 → SDC 03-31 17:33
PROVIDERS: ATTEND Orthopaedic Surgery
PROC: 0SRC0J9 Replacement of Right Knee Joint with Synthetic Substitute, Cemented, Open Approach (ICD-10-PCS; principal; 2019-03-28)
PROC: 0JCN0ZZ Extirpation of Matter from Right Lower Leg Subcutaneous Tissue and Fascia, Open Approach (ICD-10-PCS; 2019-03-29)
DX: M17.11 Unilateral primary osteoarthritis, right knee (principal); T81.31XA Disruption of external operation (surgical) wound, not elsewhere classified, initial encounter; I10 Essential (primary) hypertension; N40.0 Benign prostatic hyperplasia without lower urinary tract symptoms; Z87.891 Personal history of nicotine dependence; Z79.899 Other long term (current) drug therapy; Y83.1 Surgical operation with implant of artificial internal device as the cause of abnormal reaction of the patient, or of later complication, without mention of misadventure at the time of the procedure
CPT/HCPCS: 27301; 27447; 73560; 85027; 94640 ×4; 94760 ×2; 97116 ×4; 97139 ×6; 97150 ×3; 97530 ×3; 98960; C1713; C1776; 36415; 90471; G0008; J0131; J0670; J0690; J1885; J1940; J2001; J2250; J2405; J2704; J2795; J3010; J3370; J3490; J7050; J7620; J7626; S0020

== ENCOUNTER 2022-08-27 12:00 | Outpatient (CLI) | payer MEDICARE, BC | END 2022-08-27 12:01 | disposition home or self-care (01) | LOC: PET 12:00 | PROVIDERS: ATTEND Family Medicine | DX: R91.8 Other nonspecific abnormal finding of lung field (principal); C79.51 Secondary malignant neoplasm of bone | CPT/HCPCS: 78815; A9552 ==